=== PATIENT | female | born 1955 | race African-American/Black ===

== ENCOUNTER 2018-07-27 07:39 | Emergency (ER) | payer OTHER ==
[~2018-07-27] VITALS: Ht 162.6 cm; Wt 68.0 kg
[2018-07-27 08:23] LABS: ABSOLUTE NEUTROPHILS 13.8 thou/uL (1.4-8.2); BASOPHILS 0.7 % (0.0-2.0); EOSINOPHILS 0.2 % (0.0-3.0); HEMATOCRIT 43.6 % (37.0-47.0); HEMOGLOBIN 15.1 gm/dL (12.0-15.0); LYMPHOCYTES 14.2 % (24.0-44.0); MCH 32.3 pg (26.0-34.0); MCHC 34.5 g/dL (28.0-37.0); MCV 93.6 fL (80.0-100.0); MONOCYTES 3.4 % (1.0-8.0); PLATELET COUNT 254 thou/uL (150-400); POLYS 81.5 % (36.0-66.0); RBC 4.66 mil/uL (4.20-5.00); RDW 15.3 % (10.5-14.5); WBC 16.9 thou/uL (4.0-11.0)
[2018-07-27 08:30] LABS: CALCIUM 9.6 mg/dL (8.5-10.1); CREATININE 0.9 mg/dL (0.6-1.0); POTASSIUM 3.8 mmol/L (3.5-5.1)
[2018-07-27] MEDS ORDERED: NORCO 5-325 TA1 EACH PO (10:56)
[2018-07-27] MEDS ORDERED: IBUPROFEN 600600 M1 PO (10:56)
[2018-07-27] MEDS ORDERED: SENNA-DOCUSATE1 EACH PO (10:56)
== END 2018-07-27 11:20 | disposition home or self-care (01) ==
LOC: ER 07:39
PROVIDERS: Emergency Medicine
DX: S82.145A Nondisplaced bicondylar fracture of left tibia, initial encounter for closed fracture (principal); F17.210 Nicotine dependence, cigarettes, uncomplicated; Z86.718 Personal history of other venous thrombosis and embolism; W01.0XXA Fall on same level from slipping, tripping and stumbling without subsequent striking against object, initial encounter; Y93.89 Activity, other specified; Y92.89 Other specified places as the place of occurrence of the external cause; Y99.8 Other external cause status